=== PATIENT | male | born 1965 | race Caucasian/White ===

== ENCOUNTER 2017-01-31 08:10 | Emergency (ER) | payer MEDICAID ==
[~2017-01-31] VITALS: Ht 185.4 cm; Wt 74.8 kg
[2017-01-31] MEDS ORDERED: PANTOPRAZOLE SODIUM 40 MG/10 ML VIAL IV STA (08:48)
[2017-01-31] MEDS ORDERED: SODIUM CHLORIDE 0.9% 1,000 ML IVB ONE (08:48)
[2017-01-31] MEDS ORDERED: HYDROmorphone HCL 2 MG/ML VL IV ONE (09:00)
[2017-01-31] MEDS ORDERED: ONDANSETRON HCL 4 MG/2 ML VIAL IV ONE (09:00)
[2017-01-31 09:25] LABS: Basophils # (auto) 0 uL; Basophils % (auto) 0.1 % (0.0-2.0); CONDITION Y; Eosinophils # (auto) 0.1 uL; Eosinophils % (auto) 0.6 % (0.0-7.0); Hematocrit 42.3 % (41.0-53.0); Hemoglobin 14.6 g/dL (13.5-17.5); Lymphocytes # (auto) 2.6 uL; Lymphocytes % (auto) 20.4 % (10.0-50.0); Mean Corpuscular Hemoglobin 31.7 pg (28.0-32.0); Mean Corpuscular Hgb Conc. 34.4 g/dL (32.0-36.0); Mean Corpuscular Volume 92.1 fL (80.0-100.0); Mean Platelet Volume 8.2 fL (7.4-10.4); Monocytes # (auto) 0.3 uL; Monocytes % (auto) 2.1 % (0.0-12.0); Neutrophils # (auto) 9.8 uL; Neutrophils % (auto) 76.8 % (37.0-80.0); Platelet Count (auto) 274 10^3/uL (140-450); Red Cell Distribution Width 13.4 % (11.6-16.0); White Blood Cell 12.8 10^3/uL (4.4-10.8)
[2017-01-31 09:48] LABS: BUN/Creatinine Ratio 11.5; Calcium 8.7 mg/dL (8.5-10.1); Potassium 3.6 mmol/L (3.5-5.1)
[2017-01-31 09:58] LABS: Bilirubin, Total 0.6 mg/dL (0.2-1.0)
[2017-01-31 10:49] VITALS: BP 105/53
== END 2017-01-31 11:15 | disposition home or self-care (01) ==
LOC: ER 08:19
DX: K52.89 Other specified noninfective gastroenteritis and colitis (principal); R11.2 Nausea with vomiting, unspecified; J44.9 Chronic obstructive pulmonary disease, unspecified; K21.9 Gastro-esophageal reflux disease without esophagitis; F12.10 Cannabis abuse, uncomplicated
CPT/HCPCS: 36415; 80053; 82150; 83690; 85025; 94761; 96361; 96374; 96375; 99284; C9113; J1170; J2405

== ENCOUNTER 2021-06-08 09:26 | Emergency (ER) | payer MEDICAID ==
[~2021-06-08] VITALS: Ht 185.4 cm; Wt 72.6 kg
[2021-06-08 12:36] VITALS: BP 153/81
== END 2021-06-08 13:34 | disposition home or self-care (01) ==
LOC: ER 09:26
DX: J20.9 Acute bronchitis, unspecified (principal); Z20.822 Contact with and (suspected) exposure to COVID-19
CPT/HCPCS: 36415; 71046; 87426

== ENCOUNTER → 2024-04-02 | Outpatient (CLI) | payer MEDICAID ==
[~2024-04-02] VITALS: Ht 185.4 cm; Wt 72.6 kg
[~2024-04-02] MED LIST: REGADENOSON 0.4 MG/5 ML SYRG IV ONE
[2024-04-02] MEDS: REGADENOSON 0.4 MG/5 ML SYRG IV ONE (10:51)
== END | disposition home or self-care (01) ==
LOC: XY 16:25
PROVIDERS: ATTEND Internal Medicine
DX: I70.0 Atherosclerosis of aorta (principal); R91.8 Other nonspecific abnormal finding of lung field; J44.9 Chronic obstructive pulmonary disease, unspecified
CPT/HCPCS: 93017; J2785; 78452